=== PATIENT | male | born 1940 | race Caucasian/White ===

== ENCOUNTER 2017-01-26 08:17 | Day surgery (SDC) | payer OTHER ==
[2017-01-26] MEDS ORDERED: NS 500 ML IV 500 ML IV ONE (08:43)
[2017-01-26] MEDS ORDERED: TETRACAINE 0.5% OPHTH 1 DOSE AFFEYE ONE ×4 (09:10→11:34)
[2017-01-26] MEDS ORDERED: VIGAMOX 0.5% OPHTH 1 DOSE AFFEYE ONE ×5 (09:11→11:50)
[2017-01-26] MEDS ORDERED: PROLENSA OPHTH 1 DOSE AFFEYE ONE (09:22)
[2017-01-26] MEDS ORDERED: ALPHAGAN-P OPHTH 1 DOSE AFFEYE ONE (09:23)
[2017-01-26] MEDS ORDERED: CYCLOGYL 1% OPHTH 1 DOSE OP ONE ×4 (09:24→09:27)
[2017-01-26] MEDS ORDERED: MYDRIACIL OPHTH 1 DOSE AFFEYE ONE ×4 (09:24→09:27)
[2017-01-26] MEDS ORDERED: AK-DILATE 2.5% OPHTH 1 DOSE OP ONE ×4 (09:24→09:27)
[2017-01-26] MEDS ORDERED: BETADINE OPHTH SOLN 5% EACHEYE ONE (10:20)
[2017-01-26] MEDS ORDERED: XYLOCAINE-MPF 1% IJ ONE ×2 (11:24→11:34)
[2017-01-26] MEDS ORDERED: BSS OPHTH (PLAIN) 500 ML with VANCOMYCIN HCL 500 MG VIAL 25 MG, ADRENALINE CHL INJ 1 MG IR ONE ×6 (11:24)
[2017-01-26] MEDS ORDERED: ADRENALINE CHL INJ IJ ONE ×2 (11:24→11:34)
[2017-01-26] MEDS ORDERED: DUOVISC IO ONE ×2 (11:24→11:34)
[2017-01-26 13:05] VITALS: BP 145/73
== END 2017-01-26 12:15 | disposition home or self-care (01) ==
LOC: SURG1 08:17
PROVIDERS: ATTEND Ophthalmology
PROC: 08DJ3ZZ Extraction of Right Lens, Percutaneous Approach (ICD-10-PCS; principal; 2017-01-26 12:15)
PROC: 08RJ3JZ Replacement of Right Lens with Synthetic Substitute, Percutaneous Approach (ICD-10-PCS; principal; 2017-01-26 12:15)
DX: H25.11 Age-related nuclear cataract, right eye (principal); H25.041 Posterior subcapsular polar age-related cataract, right eye; H52.221 Regular astigmatism, right eye
CPT/HCPCS: 99100; A9270; A4217; J0170; J3370

== ENCOUNTER 2017-02-23 10:34 | Day surgery (SDC) | payer OTHER ==
[2017-02-23] MEDS ORDERED: NS 500 ML IV 500 ML IV ONE (11:34)
[2017-02-23] MEDS ORDERED: TETRACAINE 0.5% OPHTH 1 DOSE AFFEYE ONE (14:46)
[2017-02-23] MEDS ORDERED: BETADINE OPHTH SOLN 5% EACHEYE ONE (14:56)
[2017-02-23] MEDS ORDERED: XYLOCAINE-MPF 1% IJ ONE ×2 (15:04→15:23)
[2017-02-23] MEDS ORDERED: VIGAMOX 0.5% OPHTH 1 DOSE AFFEYE ONE ×2 (15:04→15:35)
[2017-02-23] MEDS ORDERED: ADRENALINE CHL INJ IJ ONE ×2 (15:04→15:23)
[2017-02-23] MEDS ORDERED: DUOVISC IO ONE ×2 (15:04→15:23)
[2017-02-23] MEDS ORDERED: BSS OPHTH (PLAIN) 500 ML with VANCOMYCIN HCL 500 MG VIAL 25 MG, ADRENALINE CHL INJ 1 MG IR ONE ×6 (15:11)
[2017-02-23] MEDS ORDERED: VERSED ONE (15:34)
[2017-02-23] MEDS ORDERED: DIPRIVAN VIAL ONE (15:34)
[2017-02-23 17:04] VITALS: BP 145/68
== END 2017-02-23 16:05 | disposition home or self-care (01) ==
LOC: SURG1 10:34
PROVIDERS: ATTEND Ophthalmology
PROC: 08DK3ZZ Extraction of Left Lens, Percutaneous Approach (ICD-10-PCS; principal; 2017-02-23 23:00)
PROC: 08RK3JZ Replacement of Left Lens with Synthetic Substitute, Percutaneous Approach (ICD-10-PCS; principal; 2017-02-23 23:00)
DX: H25.12 Age-related nuclear cataract, left eye (principal); H25.042 Posterior subcapsular polar age-related cataract, left eye; H52.222 Regular astigmatism, left eye
CPT/HCPCS: A9270; A4217; J0170; J2250; J3370; J3490